=== PATIENT | female | born 1955 | race Caucasian/White ===

== ENCOUNTER 2017-02-20 08:10 | Day surgery (SDC) | payer SELFPAY ==
[~2017-02-20 08:10] MED LIST: PROPOFOL INJ 200 MG/20 ML VIAL IV ONE
[2017-02-20 10:34] VITALS: BP 105/70
--- NOTE | 2017-02-20 13:03 | Operative Report ---
Operative Report DATE OF SURGERY: 02/20/17 Operative Report: The risks, benefits and alternatives of the procedure including risks of bleeding, perforation requiring surgery are explained to the patient detail and informed consent is obtained. Patient was taken to the endoscopy suite and placed in the left, lateral decubital position. Timeout was called. Propofol medications administered. A rectal examination is done which did not reveal any masses, tears or fissures. An Olympus videoscope was inserted into the patient's rectum. It is carefully advanced all the way to the cecum. The cecum was identified by the usual anatomical landmarks of the ileocecal valve as well as the appendiceal office. Photodocumentation is obtained. The scope was then sequentially pulled back via the various segments of the colon including the ascending colon, hepatic flexure, transverse colon, splenic flexure, descending colon finding to the rectosigmoid portions of the colon. Retroflexion maneuvers performed. PREOPERATIVE DIAGNOSIS: Family history of colon cancer. Colorectal cancer screening POSTOPERATIVE DIAGNOSIS: Normal screening colonoscopy, good prep OPERATION: Diagnostic colonoscopy SURGEON: VLAD DALEY ANESTHESIA: LMAC TISSUE REMOVED OR ALTERED: None. COMPLICATIONS: None. ESTIMATED BLOOD LOSS: None. INTRAOPERATIVE FINDINGS: No masses, AVMs, diverticulosis noted. PROCEDURE: Patient tolerated the procedure well. No immediate postprocedure complications are noted. Patient discharged in good condition. Discharge date 02/20/2017. Discharge diet: Regular. Discharge activity: Regular. 2-3 week follow-up to discuss findings. Patient is instructed to call the office or proceed to the emergency room should there be any further problems or questions. 10 year surveillance colonoscopy.
== END 2017-02-20 10:33 | disposition home or self-care (01) ==
LOC: END 08:10
PROVIDERS: ATTEND Internal Medicine Gastroenterology
PROC: 0DJD8ZZ Inspection of Lower Intestinal Tract, Via Natural or Artificial Opening Endoscopic (ICD-10-PCS; principal; 2017-02-20 10:00)
DX: K92.1 Melena (principal); R10.84 Generalized abdominal pain; Z80.0 Family history of malignant neoplasm of digestive organs; M19.90 Unspecified osteoarthritis, unspecified site; I10 Essential (primary) hypertension; Z79.899 Other long term (current) drug therapy
CPT/HCPCS: 45378; J2704; 810